=== PATIENT | female | born 1940 | race African-American/Black ===

== ENCOUNTER 2017-08-21 14:24 | Inpatient (IN) | payer MEDICARE, BC ==
[~2017-08-21] VITALS: Ht 162.6 cm; Wt 90.3 kg
[~2017-08-21 14:24] MED LIST: ACET-2178 PO; AMLO5TAB4; ATOR10TA69 PO; CARV3.1242 PO; DUREZOL LEFTEYE; HYDR-4134; LEVE500T19 PO; LORA10TA7 PO; LOSA1TAB40 PO; ONDA4TAB5 PO; PANT40TA4 PO; PROLENSA LEFTEYE; PROT20; TRAM50TA3; [UNRECOGNIZED DRUG - OTHER]; [UNRECOGNIZED DRUG - OTHER] LEFT EAR
[2017-08-21 15:47] LABS: BASOPHILS % 0.7 % (0.0-2.0); EOSINOPHILS % 4.2 % (0.0-5.0); HEMATOCRIT. 23.9 % (36.0-48.0); LYMPHOCYTES % 34.9 % (20.0-50.0); MEAN CORPUSCULAR HEMOGLOBIN 31.1 pg (28.0-32.0); MEAN CORPUSCULAR VOLUME 92.8 fL (81.0-99.0); MEAN PLATELET VOLUME 8.4 fl (7.4-10.4); MONOCYTES % 7.7 % (2.0-8.0); NEUTROPHILS % 52.5 % (40.0-76.0); PLATELET 113 x1000/uL (130-400); PROTHROMBIN TIME 10.3 sec (9.4-11.6); RED BLOOD CELL COUNT 2.58 mill/uL (4.2-5.4); RED CELL DISTRIBUTION WIDTH 17.2 % (11.6-14.6)
[2017-08-21 15:50] LABS: AMMONIA < 25 uMol/L (<32); CHLORIDE 114 mEq/L (98-107)
[2017-08-21] MEDS ORDERED: SODIUM CHLORIDE 0.9% 1,000 ML IV SCH (16:15)
[2017-08-21] MEDS ORDERED: CALCIUM GLUCONATE 100MG/ML 10ML VIAL IV ONE (16:15)
[2017-08-21] MEDS ORDERED: CALCIUM GLUCONATE 1,000 MG in SODIUM CHLORIDE 0.9% 100 ML IV SCH (17:00)
[2017-08-21 19:42] LABS: CLARITY URINE CLEAR (CLEAR); COLOR URINE YELLOW (YELLOW); KETONES URINE NEGATIVE (NEGATIVE); LEUKOCYTE ESTERASE URINE NEGATIVE (NEGATIVE); NITRITE URINE NEGATIVE (NEGATIVE); OCCULT BLOOD URINE NEGATIVE (NEGATIVE); PROTEIN URINE TRACE (NEGATIVE); SPECIFIC GRAVITY URINE 1.011 (1.005-1.030); UROBILINOGEN URINE 0.2 E.U./dL (0.2-1.0)
[2017-08-21 19:53] LABS: *AMPHETAMINES SCREEN URINE NEGATIVE (NEGATIVE); *BARBITURATES SCREEN URINE NEGATIVE (NEGATIVE); *BENZODIAZEPINES SCREEN URINE NEGATIVE (NEGATIVE); *COCAINE SCREEN URINE NEGATIVE (NEGATIVE); METHADONE URINE SCREEN NEGATIVE (NEGATIVE); OPIATES URINE SCREEN PRESUMTIVE POSITIVE (NEGATIVE); PHENCYCLIDINE URINE SCREEN NEGATIVE (NEGATIVE)
[2017-08-21 19:54] LABS: CANNABINOID URINE SCREEN NEGATIVE (NEGATIVE)
[2017-08-21] MEDS ORDERED: DEXTROSE 50% WATER 50ML SYRINGE IV NR (21:30)
[2017-08-22] VITALS (23 sets, daily range): BP systolic 59–137; BP diastolic 17–97
[2017-08-22] MEDS ORDERED: DOCUSATE SODIUM 100MG CAPSULE PO PRN
[2017-08-22] MEDS ORDERED: ACETAMINOPHEN 325MG TABLET PO PRN
[2017-08-22] MEDS ORDERED: GUAIFENESIN 200MG/10ML SUGAR FREE UDC PO PRN
[2017-08-22] MEDS ORDERED: HYDROCODONE/ACETAMINOPHEN 5/325MG TABLET PO PRN
[2017-08-22] MEDS ORDERED: ONDANSETRON HCL 4MG/2ML VIAL IV PRN
[2017-08-22] MEDS ORDERED: LORAZEPAM 0.5MG TABLET PO PRN
[2017-08-22] MEDS ORDERED: CLONIDINE 0.1MG TABLET PO PRN
[2017-08-22] MEDS ORDERED: HYDROCODONE/ACETAMINOPHEN 10/325MG TABLET PO PRN
[2017-08-22] MEDS ORDERED: MAGNESIUM/ALUMINUM HYDROXIDE/SIMETHICONE 30ML UDC PO PRN
[2017-08-22] MEDS ORDERED: DIPHENHYDRAMINE 50MG/ML VIAL IV PRN
[2017-08-22] MEDS ORDERED: DEXT 5%/0.45% NACL 1000ML 1,000 ML IV SCH (02:00)
[2017-08-22] MEDS: ASPIRIN 81MG EC TABLET PO SCH (08:42)
[2017-08-22 09:16] LABS: BASOPHILS % 0.3 % (0.0-2.0); EOSINOPHILS % 2.2 % (0.0-5.0); HEMATOCRIT. 24.2 % (36.0-48.0); HEMOGLOBIN. 8.2 g/dL (12.0-16.0); LYMPHOCYTES % 15.6 % (20.0-50.0); MEAN CORPUSCULAR HEMOGLOBIN 31.2 pg (28.0-32.0); MEAN PLATELET VOLUME 8.2 fl (7.4-10.4); MONOCYTES % 3.9 % (2.0-8.0); PLATELET 114 x1000/uL (130-400); RED BLOOD CELL COUNT 2.63 mill/uL (4.2-5.4); RED CELL DISTRIBUTION WIDTH 17.3 % (11.6-14.6)
[2017-08-22 09:39] LABS: CHLORIDE 118 mEq/L (98-107)
[2017-08-22 09:56] LABS: HDL CHOLESTEROL 76 mg/dL (40-59); PHOSPHORUS 2.8 mg/dL (2.5-4.9)
[2017-08-22 09:57] LABS: LDL CHOLESTEROL 75 mg/dL (5-100)
[2017-08-22] MEDS ORDERED: SODIUM POLYSTYRENE SULFONATE 15 G/60 ML BOT PO SCH (10:00)
[2017-08-22] MEDS ORDERED: DEXTROSE 50% WATER 50ML SYRINGE IV PRN (10:15)
[2017-08-22] MEDS: INSULIN LISPRO 100 UNITS/ML SUBCUT SCH ×3 (11:59→22:00)
[2017-08-22] MEDS: BLOOD SUGAR DIAGNOSTIC STRIP TEST SCH ×3 (11:59→22:00)
[2017-08-22 13:30] LABS: TOTAL IRON BINDING CAPACITY 224 ug/dL (250-450)
[2017-08-22] MEDS ORDERED: ACETYLCYSTEINE 100MG/ML 10% VIAL 4ML INH NR (16:30)
[2017-08-22] MEDS: IPRATROPIUM/ALBUTEROL 0.5-3(2.5)MG/3ML NEB INH PRN (17:41)
[2017-08-22 19:23] LABS: T4 FREE 0.89 ng/dL (0.76-1.46)
[2017-08-22 19:40] LABS: VITAMIN B12 SERUM >2000 pg/mL pg/mL (211-911)
[2017-08-22 19:44] LABS: BG BASE EXCESS -6.3 mmol/L (-2.0-2.0); BG CARBOXYHEMOGLOBIN 0.9 % (0.5-1.5); BG DEOXYHEMOGLOBIN 25.4 % (0.0-5.0); BG FRACTION INSPIRED OXYGEN 21; BG HCO3 ACT 19.2 mmol/L (22.0-26.0); BG METHEMOGLOBIN 0.2 % (0.0-1.5); BG OXYGEN SATURATION 74.3 % (92.0-98.5); BG OXYHEMOGLOBIN 73.5 % (94.0-97.0); BG PCO2 37.9 mmHg (35.0-45.0); BG PH 7.322 (7.350-7.450); BG PO2 40.7 mmHg (75.0-100.0); BG SAMPLE SITE RIGHT BRACHIAL; BG TOTAL HEMOGLOBIN 7.9 g/dL (12.0-18.0); BG VENT MODE ROOM AIR
[2017-08-22 19:58] LABS: FOLIC ACID (FOLATE) SERUM > 20.00 ng/mL (>5.38)
[2017-08-22] MEDS ORDERED: MAGNESIUM 2 G PREMIX 50 ML IV NR (20:30)
[2017-08-22 20:56] LABS: AMMONIA < 25 uMol/L (<32)
[2017-08-22] MEDS ORDERED: LEVETIRACETAM 500MG TABLET PO SCH (21:00)
[2017-08-22] MEDS ORDERED: LORAZEPAM 2MG/ML CPJ IM PRN (22:15)
[2017-08-22] MEDS: NOREPINEPHRINE 16 MG in SODIUM CHLORIDE 0.9% 250 ML IV PRN (23:31)
[2017-08-22 23:53] LABS: BG BASE EXCESS -11.1 mmol/L (-2.0-2.0); BG CARBOXYHEMOGLOBIN 0.2 % (0.5-1.5); BG DEOXYHEMOGLOBIN 7.7 % (0.0-5.0); BG FRACTION INSPIRED OXYGEN 100; BG HCO3 ACT 15.8 mmol/L (22.0-26.0); BG METHEMOGLOBIN 0.7 % (0.0-1.5); BG OXYGEN SATURATION 92.2 % (92.0-98.5); BG OXYHEMOGLOBIN 91.4 % (94.0-97.0); BG PH 7.214 (7.350-7.450); BG PO2 79.2 mmHg (75.0-100.0); BG SAMPLE SITE LEFT RADIAL; BG TIDAL VOLUME(mL) 500 mL; BG TOTAL HEMOGLOBIN 7.3 g/dL (12.0-18.0); BG VENT MODE VENT - A/C; BG VENT RATE 12 set
[2017-08-23] VITALS (114 sets, daily range): BP systolic 39–160; BP diastolic 26–97
[2017-08-23] MEDS ORDERED: PIPERACILLIN/TAZ 2.25G PREMIX 50 ML IV SCH
[2017-08-23] MEDS ORDERED: VANCOMYCIN 1,500 MG in SODIUM CHLORIDE 0.9% 250 ML IV NR ×2
[2017-08-23] MEDS ORDERED: LEVETIRACETAM 500MG/5ML CUP PO SCH
[2017-08-23] MEDS: IPRATROPIUM/ALBUTEROL 0.5-3(2.5)MG/3ML NEB INH PRN ×3 (00:10→08:35)
[2017-08-23] MEDS ORDERED: PROPOFOL 1000MG/100ML VIAL IV PRN (00:30)
[2017-08-23] MEDS: PROPOFOL 10MG/ML 100ML 100 ML IV PRN ×4 (01:19→22:00)
[2017-08-23] MEDS: PHENYLEPHRINE 40 MG in SODIUM CHLORIDE 0.9% 250 ML IV PRN ×3 (02:03→09:43)
[2017-08-23] MEDS ORDERED: SODIUM CHLORIDE 0.9% 1000ML BAG (SEPSIS BOLUS) IV ONE (03:45)
[2017-08-23] MEDS ORDERED: DOPAMINE 800MG PREMIX 250 ML IV ONE (03:45)
[2017-08-23] MEDS ORDERED: SODIUM CHLORIDE 0.9% IV SCH (04:30)
[2017-08-23] MEDS ORDERED: DOPAMINE HCL IV SCH (04:30)
[2017-08-23] MEDS: LEVETIRACETAM 500MG PREMIX 100 ML IV SCH ×2 (05:46→17:29)
[2017-08-23 06:22] LABS: PHOSPHORUS 1.9 mg/dL (2.5-4.9)
[2017-08-23 07:24] LABS: HEMATOCRIT. 21.5 % (36.0-48.0); HEMOGLOBIN. 7.2 g/dL (12.0-16.0); MEAN CORPUSCULAR HEMOGLOBIN 31.7 pg (28.0-32.0); MEAN CORPUSCULAR VOLUME 94.3 fL (81.0-99.0); MEAN PLATELET VOLUME 8.5 fl (7.4-10.4); PLATELET 139 x1000/uL (130-400); RED BLOOD CELL COUNT 2.28 mill/uL (4.2-5.4); RED CELL DISTRIBUTION WIDTH 17.6 % (11.6-14.6)
[2017-08-23] MEDS: NOREPINEPHRINE 16 MG in SODIUM CHLORIDE 0.9% 250 ML IV PRN ×2 (07:41→20:00)
[2017-08-23] MEDS ORDERED: MAGNESIUM 4 G PREMIX 100 ML IV NR (08:00)
[2017-08-23] MEDS ORDERED: LIDOCAINE HCL 1% 20ML VIAL (Pyxis) INJ ONE (08:07)
[2017-08-23] MEDS ORDERED: SODIUM BICARBONATE 4% (2.4MEQ) 5ML VIAL IV ONE (08:08)
[2017-08-23] MEDS: INSULIN LISPRO 100 UNITS/ML SUBCUT SCH ×4 (08:09→20:34)
[2017-08-23] MEDS: BLOOD SUGAR DIAGNOSTIC STRIP TEST SCH ×4 (08:09→20:32)
[2017-08-23 08:44] LABS: BG CARBOXYHEMOGLOBIN 0.4 % (0.5-1.5); BG DEOXYHEMOGLOBIN 9.1 % (0.0-5.0); BG FRACTION INSPIRED OXYGEN 100; BG HCO3 ACT 14.1 mmol/L (22.0-26.0); BG METHEMOGLOBIN 0.4 % (0.0-1.5); BG OXYGEN SATURATION 90.8 % (92.0-98.5); BG OXYHEMOGLOBIN 90.1 % (94.0-97.0); BG PCO2 37.5 mmHg (35.0-45.0); BG PH 7.193 (7.350-7.450); BG PO2 72.1 mmHg (75.0-100.0); BG SAMPLE SITE RIGHT BRACHIAL; BG TIDAL VOLUME(mL) 500 mL; BG TOTAL HEMOGLOBIN 7.4 g/dL (12.0-18.0); BG VENT MODE VENT - A/C; BG VENT RATE 16 set
[2017-08-23] MEDS ORDERED: POTASSIUM PHOS,M-BASIC-D-BASIC 15 MMOL in SODIUM CHLORIDE 0.9% 245 ML IV NR (09:00)
[2017-08-23] MEDS ORDERED: LEVETIRACETAM 500MG/5ML CUP JT SCH (09:00)
[2017-08-23] MEDS ORDERED: IPRATROPIUM/ALBUTEROL 0.5-3(2.5)MG/3ML NEB HHN PRN (09:00)
[2017-08-23] MEDS: SODIUM BICARBONATE 100 MEQ in DEXTROSE 5% WATER 1,000 ML IV SCH (09:03)
[2017-08-23 09:14] LABS: NUCLEATED RED BLOOD CELLS 20 /100 WBC
[2017-08-23 09:15] LABS: PLATELET ESTIMATE NORMAL
[2017-08-23] MEDS ORDERED: LEVOFLOXACIN 500MG TABLET PO SCH (11:45)
[2017-08-23] MEDS ORDERED: PHENYLEPHRINE 80 MG in DEXT 5% WATER 500 ML IV SCH (11:45)
[2017-08-23] MEDS: PANTOPRAZOLE SODIUM 40 MG/VIAL IV SCH (11:58)
[2017-08-23] MEDS: ASPIRIN 81MG EC TABLET PO SCH (11:58)
[2017-08-23 12:08] LABS: BG BASE EXCESS -14.1 mmol/L (-2.0-2.0); BG CARBOXYHEMOGLOBIN 0.3 % (0.5-1.5); BG DEOXYHEMOGLOBIN 16.7 % (0.0-5.0); BG FRACTION INSPIRED OXYGEN 100; BG HCO3 ACT 12.2 mmol/L (22.0-26.0); BG METHEMOGLOBIN 0.3 % (0.0-1.5); BG OXYGEN SATURATION 83.2 % (92.0-98.5); BG OXYHEMOGLOBIN 82.7 % (94.0-97.0); BG PCO2 30.1 mmHg (35.0-45.0); BG PH 7.226 (7.350-7.450); BG PO2 55.7 mmHg (75.0-100.0); BG SAMPLE SITE RIGHT BRACHIAL; BG TIDAL VOLUME(mL) 500 mL; BG TOTAL HEMOGLOBIN 7.4 g/dL (12.0-18.0); BG VENT MODE VENT - A/C; BG VENT RATE 16 set
[2017-08-23] MEDS ORDERED: SODIUM BICARBONATE 8.4% 1 MEQ/ML 50ML SYR IV NR ×3 (13:15→23:15)
[2017-08-23] MEDS: IPRATROPIUM/ALBUTEROL 0.5-3(2.5)MG/3ML NEB HHN SCH ×3 (13:18→20:39)
[2017-08-23] MEDS ORDERED: SODIUM BICARBONATE 8.4% 1 MEQ/ML 50ML SYR IV ONE (13:26)
[2017-08-23] MEDS: PHENYLEPHRINE 80 MG in DEXT 5% WATER 492 ML IV PRN (13:27)
[2017-08-23] MEDS ORDERED: LEVOFLOXACIN 500MG PREMIX 100 ML IV NR (13:30)
[2017-08-23] MEDS: METRONIDAZOLE 500 MG PREMIX 100 ML IV SCH ×2 (15:17→22:16)
[2017-08-23] MEDS: AZTREONAM 1 G in DEXTROSE 5% WATER 50 ML IV SCH (15:17)
[2017-08-23] MEDS: NOREPINEPHRINE 32 MG in DEXT 5% WATER 468 ML IV PRN ×2 (16:06→20:00)
[2017-08-23] MEDS: ACETYLCYSTEINE 100MG/ML 10% VIAL 4ML INH SCH (16:55)
[2017-08-23 19:02] LABS: BG BASE EXCESS -11.1 mmol/L (-2.0-2.0); BG DEOXYHEMOGLOBIN 19.1 % (0.0-5.0); BG FRACTION INSPIRED OXYGEN 100; BG HCO3 ACT 14.9 mmol/L (22.0-26.0); BG METHEMOGLOBIN 0.3 % (0.0-1.5); BG OXYGEN SATURATION 80.8 % (92.0-98.5); BG OXYHEMOGLOBIN 80.6 % (94.0-97.0); BG PCO2 33.7 mmHg (35.0-45.0); BG PH 7.263 (7.350-7.450); BG PO2 51.3 mmHg (75.0-100.0); BG SAMPLE SITE RIGHT BRACHIAL; BG TIDAL VOLUME(mL) 500 mL; BG TOTAL HEMOGLOBIN 8.4 g/dL (12.0-18.0); BG VENT MODE VENT - A/C; BG VENT RATE 20 set
[2017-08-23 21:38] LABS: HEMATOCRIT 23.1 % (36.0-48.0); HEMOGLOBIN 7.7 g/dL (12.0-16.0)
[2017-08-23 22:18] LABS: BG BASE EXCESS -9.7 mmol/L (-2.0-2.0); BG CARBOXYHEMOGLOBIN 0.7 % (0.5-1.5); BG DEOXYHEMOGLOBIN 22.7 % (0.0-5.0); BG FRACTION INSPIRED OXYGEN 100; BG HCO3 ACT 16.5 mmol/L (22.0-26.0); BG METHEMOGLOBIN 0.6 % (0.0-1.5); BG PCO2 37.3 mmHg (35.0-45.0); BG PH 7.263 (7.350-7.450); BG PO2 46.9 mmHg (75.0-100.0); BG SAMPLE SITE RIGHT FEMORAL; BG TIDAL VOLUME(mL) 550 mL; BG TOTAL HEMOGLOBIN 7.8 g/dL (12.0-18.0); BG VENT MODE VENT - A/C; BG VENT RATE 20 set
[2017-08-24] VITALS (59 sets, daily range): BP systolic 50–149; BP diastolic 26–80
[2017-08-24] MEDS: ACETYLCYSTEINE 100MG/ML 10% VIAL 4ML INH SCH ×3 (00:04→15:28)
[2017-08-24] MEDS: IPRATROPIUM/ALBUTEROL 0.5-3(2.5)MG/3ML NEB HHN SCH ×5 (00:04→15:26)
[2017-08-24] MEDS: SODIUM BICARBONATE 100 MEQ in DEXTROSE 5% WATER 1,000 ML IV SCH (00:10)
[2017-08-24 04:18] LABS: BG DEOXYHEMOGLOBIN 11.6 % (0.0-5.0); BG FRACTION INSPIRED OXYGEN 100; BG HCO3 ACT 21.1 mmol/L (22.0-26.0); BG METHEMOGLOBIN 0.6 % (0.0-1.5); BG OXYGEN SATURATION 88.3 % (92.0-98.5); BG OXYHEMOGLOBIN 87.8 % (94.0-97.0); BG PCO2 33.8 mmHg (35.0-45.0); BG PH 7.413 (7.350-7.450); BG PO2 56.9 mmHg (75.0-100.0); BG SAMPLE SITE RIGHT FEMORAL; BG TIDAL VOLUME(mL) 550 mL; BG TOTAL HEMOGLOBIN 8.9 g/dL (12.0-18.0); BG VENT MODE VENT - A/C; BG VENT RATE 20 set
[2017-08-24] MEDS: AZTREONAM 1 G in DEXTROSE 5% WATER 50 ML IV SCH ×3 (04:33→15:52)
[2017-08-24] MEDS: LEVETIRACETAM 500MG PREMIX 100 ML IV SCH (04:34)
[2017-08-24] MEDS: METRONIDAZOLE 500 MG PREMIX 100 ML IV SCH ×2 (05:07→13:06)
[2017-08-24 05:38] LABS: BASOPHILS % 0.7 % (0.0-2.0); EOSINOPHILS % 1.9 % (0.0-5.0); HEMATOCRIT. 23.2 % (36.0-48.0); HEMOGLOBIN. 7.9 g/dL (12.0-16.0); LYMPHOCYTES % 20.6 % (20.0-50.0); MEAN CORPUSCULAR HEMOGLOBIN 31.7 pg (28.0-32.0); MEAN CORPUSCULAR VOLUME 93.4 fL (81.0-99.0); MEAN PLATELET VOLUME 8.9 fl (7.4-10.4); MONOCYTES % 3.3 % (2.0-8.0); NEUTROPHILS % 73.5 % (40.0-76.0); PLATELET 108 x1000/uL (130-400); RED BLOOD CELL COUNT 2.48 mill/uL (4.2-5.4); RED CELL DISTRIBUTION WIDTH 17.6 % (11.6-14.6)
[2017-08-24 06:33] LABS: PHOSPHORUS 2.3 mg/dL (2.5-4.9)
[2017-08-24] MEDS: PROPOFOL 10MG/ML 100ML 100 ML IV PRN (06:35)
[2017-08-24] MEDS: NOREPINEPHRINE 32 MG in DEXT 5% WATER 468 ML IV PRN ×2 (06:46→09:24)
[2017-08-24] MEDS: NOREPINEPHRINE 16 MG in SODIUM CHLORIDE 0.9% 250 ML IV PRN (06:49)
[2017-08-24] MEDS: BLOOD SUGAR DIAGNOSTIC STRIP TEST SCH (07:50)
[2017-08-24] MEDS: INSULIN LISPRO 100 UNITS/ML SUBCUT SCH (08:20)
[2017-08-24 08:33] LABS: BG BASE EXCESS -5.4 mmol/L (-2.0-2.0); BG CARBOXYHEMOGLOBIN 0.3 % (0.5-1.5); BG DEOXYHEMOGLOBIN 4.8 % (0.0-5.0); BG FRACTION INSPIRED OXYGEN 100; BG HCO3 ACT 18.3 mmol/L (22.0-26.0); BG METHEMOGLOBIN 0.3 % (0.0-1.5); BG OXYGEN SATURATION 95.2 % (92.0-98.5); BG OXYHEMOGLOBIN 94.6 % (94.0-97.0); BG PCO2 28.5 mmHg (35.0-45.0); BG PH 7.426 (7.350-7.450); BG PO2 82.4 mmHg (75.0-100.0); BG SAMPLE SITE LEFT RADIAL; BG TIDAL VOLUME(mL) 550 mL; BG TOTAL HEMOGLOBIN 7.5 g/dL (12.0-18.0); BG VENT MODE VENT - A/C; BG VENT RATE 20 set
[2017-08-24] MEDS ORDERED: POTASSIUM PHOS,M-BASIC-D-BASIC 10 MMOL in DEXT 5% WATER 246.6667 ML IV ONE (08:45)
[2017-08-24] MEDS ORDERED: MAGNESIUM 2 G PREMIX 50 ML IV NR (09:00)
[2017-08-24] MEDS: DOPAMINE HCL IV PRN ×2 (09:24→15:55)
[2017-08-24] MEDS: SODIUM CHLORIDE 0.9% IV PRN ×2 (09:24→15:55)
[2017-08-24] MEDS ORDERED: SODIUM CHLORIDE 0.9% IV NR (10:00)
[2017-08-24] MEDS ORDERED: POTASSIUM PHOS M BASIC D BASIC IV NR (10:00)
[2017-08-24] MEDS: PANTOPRAZOLE SODIUM 40 MG/VIAL IV SCH (10:17)
[2017-08-24] MEDS: ASPIRIN 81MG EC TABLET PO SCH (10:17)
[2017-08-24] MEDS ORDERED: SODIUM BICARBONATE 7.5% 0.9 MEQ/ML 50ML SYR IV ONE (10:47)
[2017-08-24] MEDS ORDERED: CALCIUM CHLORIDE 1GM/10ML SYR IV ONE (10:47)
[2017-08-24] MEDS ORDERED: EPINEPHRINE 0.1MG/ML (1:10,000) 10ML SYR ONE (10:47)
[2017-08-24] MEDS ORDERED: ATROPINE SULFATE 1MG/10ML SYR ONE (10:47)
[2017-08-24] MEDS ORDERED: LEVOFLOXACIN 250MG TABLET PO SCH (11:00)
[2017-08-24] MEDS ORDERED: BLOOD SUGAR DIAGNOSTIC STRIP TEST SCH (12:00)
[2017-08-24] MEDS ORDERED: INSULIN LISPRO 100 UNITS/ML SUBCUT SCH (12:00)
[2017-08-24] MEDS: PHENYLEPHRINE 80 MG in DEXT 5% WATER 492 ML IV PRN (12:28)
[2017-08-24] MEDS ORDERED: LEVOFLOXACIN 250MG PREMIX 50 ML IV SCH (13:00)
[2017-08-24] MEDS ORDERED: AZITHROMYCIN 500 MG TABLET PO SCH (14:15)
== END 2017-08-24 21:30 | disposition expired | DRG 871 ==
LOC: ER 14:29 → 8WST 21:24 → SUPCPDRO 23:33 → ENRESERV 08-22 01:56 → 8WST 08-22 05:00 → 3WST 08-22 20:35 → CVICU 08-22 21:58
PROVIDERS: ADMIT Family Medicine Adult Medicine; ATTEND Family Medicine Adult Medicine
PROC: 5A1945Z Respiratory Ventilation, 24-96 Consecutive Hours (ICD-10-PCS; principal; 2017-08-22)
PROC: 0BH17EZ Insertion of Endotracheal Airway into Trachea, Via Natural or Artificial Opening (ICD-10-PCS; 2017-08-22)
PROC: 30233N1 Transfusion of Nonautologous Red Blood Cells into Peripheral Vein, Percutaneous Approach (ICD-10-PCS; 2017-08-23)
PROC: 02HV33Z Insertion of Infusion Device into Superior Vena Cava, Percutaneous Approach (ICD-10-PCS; 2017-08-23)
PROC: B548ZZA Ultrasonography of Superior Vena Cava, Guidance (ICD-10-PCS; 2017-08-23)
PROC: 5A12012 Performance of Cardiac Output, Single, Manual (ICD-10-PCS; 2017-08-24)
DX: A41.9 Sepsis, unspecified organism (principal); J69.0 Pneumonitis due to inhalation of food and vomit; J96.01 Acute respiratory failure with hypoxia; R65.21 Severe sepsis with septic shock; G92 Toxic encephalopathy; N17.9 Acute kidney failure, unspecified; D61.818 Other pancytopenia; I50.21 Acute systolic (congestive) heart failure; E11.22 Type 2 diabetes mellitus with diabetic chronic kidney disease; D69.6 Thrombocytopenia, unspecified; I13.0 Hypertensive heart and chronic kidney disease with heart failure and stage 1 through stage 4 chronic kidney disease, or unspecified chronic kidney disease; I42.9 Cardiomyopathy, unspecified; E87.5 Hyperkalemia; D64.9 Anemia, unspecified; N18.9 Chronic kidney disease, unspecified; E11.649 Type 2 diabetes mellitus with hypoglycemia without coma; E78.00 Pure hypercholesterolemia, unspecified; E78.5 Hyperlipidemia, unspecified; E83.42 Hypomagnesemia; E86.0 Dehydration; E87.6 Hypokalemia; F03.90 Unspecified dementia, unspecified severity, without behavioral disturbance, psychotic disturbance, mood disturbance, and anxiety; G40.909 Epilepsy, unspecified, not intractable, without status epilepticus; I34.0 Nonrheumatic mitral (valve) insufficiency; Z86.73 Personal history of transient ischemic attack (TIA), and cerebral infarction without residual deficits; Z88.0 Allergy status to penicillin; Z95.810 Presence of automatic (implantable) cardiac defibrillator; Z91.040 Latex allergy status
CPT/HCPCS: 31500; 36415; 36430; 36569; 36600; 70450; 71045; 76770; 76937; 80048; 80053; 80061; 80202; 80305; 81003; 82140; 82375; 82550; 82607; 82746; 82805; 82962; 83036; 83540; 83550; 83605; 83690; 83735; 83880; 84100; 84132; 84439; 84443; 84481; 84484; 85014; 85018; 85025; 85384; 85610; 86850; 86900; 86920; 87040; 87070; 87077; 87086; 92610; 92950; 93005; 93306; 93970; 94002; 94003; 94640; 94667; 96361; 96374; 97161; 99285; A6261; C1725; C1893; C9113; J0171; J0461; J0610; J1265; J1953; J1956; J2370; J2704; J3370; J3475; J3490; J7030; J7050; J7060; J7070; J7608; J7620; P9016; A4315